=== PATIENT | female | born 1995 | race Caucasian/White ===

== ENCOUNTER → 2019-12-03 | Outpatient (CLI) | payer MEDICAID, SELFPAY ==
[2019-12-07 20:02] LABS: HPV Reflexed? NOT INDICATED
== END | disposition home or self-care (01) ==
PROVIDERS: Visit Provider Obstetrics & Gynecology
DX: Z12.4 Encounter for screening for malignant neoplasm of cervix (principal)
CPT/HCPCS: 87491; 87591; 88175; G0145

== ENCOUNTER → 2019-12-21 15:42 | Outpatient (CLI) | payer SELFPAY ==
[2019-12-21 18:08] LABS: Probe Check PASS; Sample Adequacy Control PASS; Specimen Processing Control PASS; Trichomonas Vag DNA by PCR Negative (Negative)
[2019-12-21 18:53] LABS: Chlamydia Trachomatis by PCR Negative (Negative); Neisserai gonorrhoeae by PCR Negative (Negative); Probe Check PASS; Sample Adequacy Control PASS; Specimen Processing Control PASS
== END ==
PROVIDERS: Referring Provider Obstetrics & Gynecology; Visit Provider Obstetrics & Gynecology
DX: Z12.4 Encounter for screening for malignant neoplasm of cervix (principal)
CPT/HCPCS: 87491; 87591; 87661

== ENCOUNTER → 2020-04-06 15:12 | Outpatient (CLI) | payer BC, MEDICAID, SELFPAY ==
[2020-04-06 17:01] LABS: hCG Titer Quant., Serum < 1 mIU/mL (1-3)
[2020-04-06 17:07] LABS: Free T3 2.5 pg/mL (2.18-3.98); T4 Free Direct 0.76 ng/dL (0.76-1.46); T4 Total, Thyroxin 5.4 ug/dL (4.8-13.9); Thyroid Stim Hormone (TSH) 4.98 uIU/mL (0.358-3.74)
[2020-04-10 16:26] LABS: Thyroid Peroxidase AB 327 IU/mL (0-34)
== END ==
PROVIDERS: Visit Provider Obstetrics & Gynecology
DX: N92.6 Irregular menstruation, unspecified (principal); N91.1 Secondary amenorrhea; E04.9 Nontoxic goiter, unspecified
CPT/HCPCS: 36415; 84436; 84439; 84443; 84481; 84702; 86376; 86800

== ENCOUNTER → 2020-09-18 15:39 | Outpatient (CLI) | payer BC, MEDICAID, SELFPAY ==
[2020-06-29 11:43] VITALS: BMI 20.5
[2020-09-18 18:58] LABS: T4 Free Direct 0.84 ng/dL (0.76-1.46); Thyroid Stim Hormone (TSH) 2.05 uIU/mL (0.358-3.74)
== END ==
PROVIDERS: Visit Provider Internal Medicine Endocrinology, Diabetes & Metabolism
DX: E03.8 Other specified hypothyroidism (principal); E06.3 Autoimmune thyroiditis
CPT/HCPCS: 36415; 84439; 84443

== ENCOUNTER → 2020-12-07 | Outpatient (CLI) | payer BC, MEDICAID, SELFPAY ==
[2020-06-29 11:43] VITALS: BMI 20.5
[2020-12-08 12:39] LABS: HIV - WCH Non-Reactive (Nonreactive); Hepatitis B Surface Antigen Non-Reactive (Nonreactive); Hepatitis C Antibody Non-Reactive (Nonreactive); Syphilis Antibodies Non-reactive
[2020-12-11 20:08] LABS: Chlamydia By Nucleic Acid AMP Negative (Negative)
[2020-12-11 20:43] LABS: Gonococcus By Nucleic Acid AMP Negative (Negative)
[2020-12-12 03:07] LABS: HSV 1 By PCR Positive (Negative)
[2020-12-12 07:49] LABS: HSV 2 By PCR Negative (Negative)
== END | disposition home or self-care (01) ==
PROVIDERS: Referring Provider Student in an Organized Health Care Education/Training Program; Visit Provider Student in an Organized Health Care Education/Training Program
DX: Z11.3 Encounter for screening for infections with a predominantly sexual mode of transmission (principal)
CPT/HCPCS: 36415; 86703; 86780; 86803; 87340; 87491; 87529; 87591

== ENCOUNTER → 2021-01-22 16:12 | Outpatient (CLI) | payer BC, MEDICAID, SELFPAY ==
[2020-06-29 11:43] VITALS: BMI 20.5
--- NOTE | 2021-01-22 16:14 | US_ITS ---
STUDY: THYROID ULTRASOUND REASON FOR EXAM: Female, 25 years old. goiter, compressive symptoms. TECHNIQUE: Ultrasound evaluation of the thyroid was performed with real-time and static mccall-scale imaging. COMPARISON: None. FINDINGS: RIGHT LOBE: The right lobe of the thyroid gland measures 5.7 x 1.9 x 1.4 cm. There is a heterogeneous echotexture. There are no demonstrated solid, cystic or complex lesions. LEFT LOBE: The left lobe of the thyroid gland measures 5.0 x 1.7 x 1.5 cm. There is a heterogeneous echotexture. There are no demonstrated solid, cystic or complex lesions. ISTHMUS: The isthmus measures 6 mm thick. . The regional lymph nodes are normal. US/Thyroid IMPRESSION: Thyroiditis but no dominant nodule. Electronically Signed: Vishal Aldana MD at 16:45 EDT Tel , Service support ,
== END ==
PROVIDERS: Referring Provider Internal Medicine Endocrinology, Diabetes & Metabolism; Visit Provider Internal Medicine Endocrinology, Diabetes & Metabolism
DX: E04.9 Nontoxic goiter, unspecified (principal)
CPT/HCPCS: 76536

== ENCOUNTER → 2021-06-05 | Outpatient (CLI) | payer BC, SELFPAY ==
[2021-06-08 13:41] LABS: Gonococcus By Nucleic Acid AMP Negative (Negative)
[2021-06-08 14:38] LABS: Chlamydia By Nucleic Acid AMP Positive (Negative)
== END | disposition home or self-care (01) ==
LOC: LABSPEC 15:32
PROVIDERS: Visit Provider Student in an Organized Health Care Education/Training Program
DX: Z11.3 Encounter for screening for infections with a predominantly sexual mode of transmission (principal)
CPT/HCPCS: 87491; 87591

== ENCOUNTER → 2021-06-29 13:47 | Outpatient (CLI) | payer BC, SELFPAY ==
[2021-06-29 15:28] LABS: Thyroid Stim Hormone (TSH) 1.26 uIU/mL (0.358-3.74)
[2021-06-29 16:19] LABS: Vitamin D,25 Hydroxy 17.2 ng/mL
== END ==
PROVIDERS: Referring Provider Internal Medicine Endocrinology, Diabetes & Metabolism; Visit Provider Internal Medicine Endocrinology, Diabetes & Metabolism
DX: E03.8 Other specified hypothyroidism (principal); E06.3 Autoimmune thyroiditis; E55.9 Vitamin D deficiency, unspecified; F32.A Depression, unspecified
CPT/HCPCS: 36415; 82306; 84439; 84443

== ENCOUNTER → 2022-02-25 | Outpatient (CLI) | payer BC, MEDICAID, SELFPAY ==
[2022-02-25 17:43] LABS: T4 Free Direct 0.79 ng/dL (0.76-1.46)
== END | disposition home or self-care (01) ==
PROVIDERS: Referring Provider Internal Medicine Endocrinology, Diabetes & Metabolism; Visit Provider Internal Medicine Endocrinology, Diabetes & Metabolism
DX: E03.8 Other specified hypothyroidism (principal); E06.3 Autoimmune thyroiditis; E04.9 Nontoxic goiter, unspecified
CPT/HCPCS: 36415; 84439; 84443

== ENCOUNTER → 2022-03-11 | Outpatient (CLI) | payer BC, MEDICAID, SELFPAY ==
[2022-03-12 21:07] LABS: Chlamydia By Nucleic Acid AMP Negative (Negative)
[2022-03-13 15:31] LABS: Gonococcus By Nucleic Acid AMP Negative (Negative)
[2022-03-14 07:43] LABS: HPV Reflexed? NOT INDICATED
== END | disposition home or self-care (01) ==
LOC: LABSPEC 10:24
PROVIDERS: Visit Provider Student in an Organized Health Care Education/Training Program
DX: Z12.4 Encounter for screening for malignant neoplasm of cervix (principal); Z11.3 Encounter for screening for infections with a predominantly sexual mode of transmission
CPT/HCPCS: 87491; 87591; 88175; G0145

== ENCOUNTER → 2023-03-28 | Outpatient (CLI) | payer BC, MEDICAID, SELFPAY ==
--- NOTE | 2023-03-28 09:27 | BI_ITS ---
MAMMOGRAPHY - BILATERAL DIAGNOSTIC REASON FOR EXAM: Female, 27 years old. Tender right breast lump. PERTINENT HISTORY: Non-contributory. TECHNIQUE: Digital bilateral breast delio (3D mammographic acquisition) in the CC and MLO projections. 2-D mediolateral oblique (MLO) and craniocaudad (CC) views of both breasts were obtained. CAD: Full Field Digital Mammography with Computer Added Detection was performed. COMPARISON: None. Baseline examination. FINDINGS: Breast Composition: The breasts are extremely dense, which lowers the sensitivity of mammography. There are no dominant masses or suspicious calcifications. No other significant abnormalities are identified. BI/DIAG MAMM W/CAD, BILAT IMPRESSION: Negative diagnostic mammogram. With the patient''s history of a palpable lump in the upper deep medial portion of the right breast, correlation with ultrasound is recommended. ASSESSMENT CATEGORY: BIRADS Category 0: Incomplete. Need additional imaging evaluation. A letter regarding these results will be sent to the patient by the facility within 30 days. Approximately 10% of breast cancers are not detected by mammography. A normal mammogram should not delay biopsy of a clinically suspicious abnormality. Electronically Signed: Ranjit Gonzalez MD at 11:24 EDT ,
--- NOTE | 2023-03-28 10:27 | US_ITS ---
STUDY: ULTRASOUND BREAST - RIGHT REASON FOR EXAM: Female, 27 years old. Palpable lump in the upper inner quadrant of the right breast. TECHNIQUE: Axial and longitudinal images of the RIGHT breast were performed with a high resolution ultrasound transducer. # OF IMAGES: 28 COMPARISON: Comparison is made with prior mammogram done earlier in the day. FINDINGS: RIGHT Breast: In the upper inner quadrant of the breast was examined with ultrasound. There is dense fibroglandular tissue. No solid or cystic mass lesion is seen. US/Breast Limited Unilateral IMPRESSION: No sonographic abnormality is seen. ASSESSMENT CATEGORY: BIRADS Category 1: Negative. A letter regarding these results will be sent to the patient by the facility within 30 days. Electronically Signed: Ranjit Gonzalez MD at 12:45 EDT ,
== END | disposition home or self-care (01) ==
PROVIDERS: Referring Provider Student in an Organized Health Care Education/Training Program; Visit Provider Student in an Organized Health Care Education/Training Program
DX: N63.15 Unspecified lump in the right breast, overlapping quadrants (principal)
CPT/HCPCS: 76642; 77062; 77066; G0279

== ENCOUNTER → 2023-05-31 | Outpatient (CLI) | payer BC, MEDICAID, SELFPAY ==
[2023-05-31 12:36] LABS: T4 Free Direct 0.77 ng/dL (0.76-1.46); Thyroid Stim Hormone (TSH) 4.19 uIU/mL (0.358-3.74)
== END | disposition home or self-care (01) ==
LOC: LAB 11:31
PROVIDERS: Referring Provider Internal Medicine Endocrinology, Diabetes & Metabolism; Visit Provider Internal Medicine Endocrinology, Diabetes & Metabolism
DX: E03.8 Other specified hypothyroidism (principal); E06.3 Autoimmune thyroiditis
CPT/HCPCS: 36415; 84439; 84443

== ENCOUNTER → 2024-04-16 | Outpatient (CLI) | payer BC, SELFPAY ==
[2024-04-16 14:48] LABS: T4 Free Direct 0.75 ng/dL (0.76-1.46)
== END | disposition home or self-care (01) ==
PROVIDERS: Referring Provider Internal Medicine Endocrinology, Diabetes & Metabolism; Visit Provider Internal Medicine Endocrinology, Diabetes & Metabolism
DX: E03.8 Other specified hypothyroidism (principal); E06.3 Autoimmune thyroiditis
CPT/HCPCS: 36415; 84439; 84443